=== PATIENT | male | born 1995 | race Caucasian/White ===

== ENCOUNTER → 2017-04-04 | Outpatient (CLI) | payer BC ==
[2017-04-04 13:33] LABS: BUN 14 mg/dL (7-18)
[2017-04-04 13:37] LABS: GFR (ESTIMATED) 141 ML/MIN (>60)
== END ==
LOC: CARL-LAB 09:33
PROVIDERS: Nurse Practitioner Family
DX: E78.2 Mixed hyperlipidemia (principal); E66.01 Morbid (severe) obesity due to excess calories